=== PATIENT | male | born 1960 | race Caucasian/White ===

== ENCOUNTER 2016-09-23 16:45 | Emergency (ER) ==
[2016-09-23] MEDS ORDERED: NS 1,000 ML IV ONE (17:15)
--- NOTE | 2016-09-23 17:22 | PROVIDER DOCUMENTATION ---
HPI-Neurological Disorder - General Source: patient - History of Present Illness-Neuro Severity: reports: mild Onset/Duration: reports: just prior to arrival Context: reports: impaired speech Any recent trauma/injury?: reports: none Character of Deficits: reports: impaired speech New weakness or altered sensation location:: reports: none Cognitive Baseline: alert, oriented x3 Associated Symptoms: reports: sleepy Similar Symptoms Previously?: No Recently seen or treated by another doctor?: No <Kristie Ocampo - Last Filed: 09/23/16 18:01> <Niraj Tompkins - Last Filed: 09/23/16 19:43> <Daniel Carr - Last Filed: 09/23/16 19:45> - General Chief Complaint: Stroke-Like Symptoms Stated Complaint: right eye vision gone,slurred speech Time Seen by Provider: 09/23/16 17:05 Allergies/Adverse Reactions: Patient Allergies Allergy/AdvReac Type Severity Reaction Status Date / Time No Known Allergies Allergy Verified 06/30/16 14:43 Home Medications: Tizanidine [Zanaflex] 4 mg PO TID 11/26/14 Potassium Gluconate 595 mg PO DAILY 06/30/16 Propantheline Sallis 15 mg PO DAILY 06/30/16 Vitamin B Complex [B Complex] 1 each PO BID 06/30/16 - History of Present Illness-Neuro Nature of Presenting Problem: Pt is a 56 yom who came to the ED with a cc of stroke like symptoms. pt friend reports he cannot express his feelings. pt is a quadriplegic. (Kristie Ocampo) Review of Systems - Adult - REVIEW OF SYSTEMS - ADULT Constitutional: denies: chills, fatique Eyes: denies: blurred vision, double vision Ears, Nose, Mouth & Throat: reports: no symptoms reported Cardiovascular: denies: irregular heart rate, orthopnea Respiratory: reports: no symptoms reported Gastrointestinal: denies: diarrhea, nausea, vomiting Genitourinary: reports: no symptoms reported Musculoskeletal: reports: no symptoms reported Integumentary: reports: no symptoms reported Neurological: reports: slurred speech. denies: loss of balance, numbness, paresthesia, syncope Psychiatric: reports: no symptoms reported Endocrine: reports: no symptoms reported Hematologic/Lymphatic: reports: no symptoms reported Allergic/Immunologic: reports: no symptoms reported All Other Systems: Reviewed and Negative <Kristie Ocampo - Last Filed: 09/23/16 18:01> Past History - Adult - PAST MEDICAL HISTORY-ADULT Review of Records: reports: Old Records Reviewed, Nursing Assessment Review Major Childhood Illnesses: reports: denies history Cardiovascular: reports: denies history Respiratory: reports: denies history Gastrointestinal: reports: denies history Obstetrical/Gynecological: reports: denies history Genitourinary: reports: denies history Musculoskeletal: reports: denies history Neurological: reports: denies history Endocrine/Immune: reports: denies history Other Conditions: reports: denies history - IMMUNIZATION STATUS Childhood Immunizations: See Nurse Assessment Flu Vaccine: See Nurse Assessment - FAMILY HISTORY Family History: reviewed, not pertinent <Kristie Ocampo - Last Filed: 09/23/16 18:01> Physical Exam- Neurological - Physical Exam-Neuro General Appearance: appears well, alert, no apparent distress HENMT: normocephalic/atraumatic, normal ENT inspection, TMs normal, pharynx normal Head Injury: no evidence of injury Neck: non-tender, full range of motion, supple, normal inspection Respiratory: chest non-tender, lungs clear, normal breath sounds, no pleuratic chest pain, no respiratory distress, no accessory muscle use Cardiovascular: normal peripheral pulses, regular rate, rhythm, no edema, no gallop, no JVD, no murmur Abdominal Exam: normal bowel sounds, non tender, soft, no organomegaly, no pulsatile mass Lymphatic: no adenopathy 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 Exam: normal hearing, normal speech, PERRL Coordination/Gait: normal finger to nose, normal gait, negative Romberg's sign Motor/Sensory: no motor deficit, no sensory deficit, no pronator drift, negative Babinski's sign Neurologic: 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 Tompkins Time of Transfer: 17:51 <Kristie Ocampo - Last Filed: 09/23/16 18:01> <Niraj Tompkins - Last Filed: 09/23/16 19:43> - REASSESSMENT Reassessment #1 Time Reassessed: 18:38 Status: improving (Dr. Tompkins discussed results of X-ray with pt and pt's family. Pt reports feeling much better and family reports pt is back at his baseline. Pt 's speech was not slurred. Pt's B/P was 174/104 and HR was 48.) Reassessment #2 Time Reassessed: 18:49 Status: other (Dr. Tompkins told pt that admit will wait due to labs/orders still being processed) - EKG 1 Time of EKG reading by physician:: 16:53 EKG Read and Signed by:: Kat Beltran EKG Interpretation (*Must complete 3 of following elements*): Abnormal (Minimal voltage criteria for LVH, may be normal variant per Dr. Tompkins) Rate: 49 Rhythm: Sinus bradycardia - XRAY 1 XRAY: Bilateral XRAY Study: Chest Impression: See EMR Report XRAY Interpretation: NAD per Dr. Tompkins - CHANGE OF SHIFT REPORT (ED Provider) Report Given and Care Transferred to:: Dr. Tompkins Time of Transfer: 18:00 <Daniel Carr - Last Filed: 09/23/16 19:45> - PLAN OF CARE/RESULTS Progress/Plan/Lab Results: Vital Signs - 24 hr 09/23/16 17:03 Pulse Rate 58 L Respiratory 18 Rate Blood Pressure 206/112 Orders Category Date Time Status Cardiac Monitoring DIRECTED Care 09/23/16 17:16 Active Finger Stick Blood Sugar (ED) DIRECTED Care 09/23/16 17:16 Active Oxygen Therapy- ED Nursing DIRECTED Care 09/23/16 17:16 Active Saline Loc NOW Care 09/23/16 17:16 Active CHEST-PORTABLE [RAD] Stat Exams 09/23/16 17:17 Ordered HEAD W/O CONTRAST [CT] Stat Exams 09/23/16 16:58 Ordered ALCOHOL BLOOD Stat Lab 09/23/16 17:16 Uncollected CBC WITH ELECTRONIC DIFF [HEME] Stat Lab 09/23/16 17:16 Uncollected CK PROFILE [SP CHEM] Stat Lab 09/23/16 17:17 Uncollected COMPREHENSIVE METABOLIC PANEL [CHEM] Stat Lab 09/23/16 17:16 Uncollected LACTATE, PLASMA [CHEM] Stat Lab 09/23/16 17:16 Uncollected PROTIME WITH INR [COAG] Stat Lab 09/23/16 17:16 Uncollected PTT [COAG] Stat Lab 09/23/16 17:16 Uncollected TROPONIN T Stat Lab 09/23/16 17:16 Uncollected URINALYSIS W/POSS RFLX CULT [URINALYSIS] Stat Lab 09/23/16 17:15 Uncollected URINE DRUG SCREEN Stat Lab 09/23/16 17:16 Uncollected 0.9% Sodium Chloride Inj [Ns] 1,000 ml Med 09/23/16 17:15 Active IV 150 mls/hr Pulse Oximetry Stat Oth 09/23/16 17:16 Active EKG [EKG] Stat Ther 09/23/16 17:16 Ordered (Kristie Ocampo) Vital Signs - 24 hr 09/23/16 17:03 Pulse Rate 58 L Respiratory 18 Rate Blood Pressure 206/112 Orders Category Date Time Status Cardiac Monitoring DIRECTED Care 09/23/16 17:16 Active Finger Stick Blood Sugar (ED) DIRECTED Care 09/23/16 17:16 Active Oxygen Therapy- ED Nursing DIRECTED Care 09/23/16 17:16 Active Saline Loc NOW Care 09/23/16 17:16 Active CHEST-1 VIEW [RAD] Stat Exams 09/23/16 17:17 Taken HEAD W/O CONTRAST [CT] Stat Exams 09/23/16 16:58 Draft ALCOHOL BLOOD Stat Lab 09/23/16 18:27 Received CBC WITH ELECTRONIC DIFF [HEME] Stat Lab 09/23/16 18:27 Results CK PROFILE [SP CHEM] Stat Lab 09/23/16 18:27 Received COMPREHENSIVE METABOLIC PANEL [CHEM] Stat Lab 09/23/16 18:27 Received LACTATE, PLASMA [CHEM] Stat Lab 09/23/16 18:27 Received PROTIME WITH INR [COAG] Stat Lab 09/23/16 18:27 Received PTT [COAG] Stat Lab 09/23/16 18:27 Received TROPONIN T Stat Lab 09/23/16 18:27 Received URINALYSIS W/POSS RFLX CULT [URINALYSIS] Stat Lab 09/23/16 18:35 Ordered URINE DRUG SCREEN Stat Lab 09/23/16 18:35 Ordered 0.9% Sodium Chloride Inj [Ns] 1,000 ml Med 09/23/16 17:15 Active IV 150 mls/hr Aspirin Med 09/23/16 18:37 Discontinued 81 mg PO NOW ONE Pulse Oximetry Stat Oth 09/23/16 17:16 Active EKG [EKG] Stat Ther 09/23/16 17:16 Ordered (Danile Carr) Departure <Kristie Ocampo - Last Filed: 09/23/16 18:01> - Departure Certified Medical Emergency: Emergent <Niraj Tompkins - Last Filed: 09/23/16 19:43> - Departure Time of Disposition Order: 19:45 Certified Medical Emergency: Emergent <Daniel Carr - Last Filed: 09/23/16 19:45> - Departure DIAGNOSIS: Uncontrolled hypertension, Chronic hyponatremia TIA (transient ischemic attack) Qualifiers: Transient cerebral ischemia type: other Qualified Code(s): G45.8 - Other transient cerebral ischemic attacks and related syndromes Disposition: HOME 01 Condition: Stable Additional Instructions: Follow up with Neurologist, Dr. Norton and your PCP on Monday. increase sodium intake, recheck sodium level next week ED Follow Up Instructions: You have been treated by a care provider in the Emergency Department. These instructions are being provided to you so you can have an understanding of how to care for yourself upon discharge. Upon discharge from the Emergency Department, you are responsible for making arrangements for follow-up care by a physician of your choice. Take all prescribed medications as directed. Return to the Emergency Department immediately for any new or worsening symptoms. You may call the Physician Referral phone number at [phone] to obtain a list of Physicians who are taking new patients. Referrals: Harry Marcus MD [Primary Care Provider] - Instructions: Transient Ischemic Attack, [id number] Attestation - Scribe Verification/Attestation Scribe:: Kristie Ocampo Acting as Scribe for:: Kat Beltran Scribe documention review:: This chart was documented by a scribe and accurately reflects the service the provider performed and the decisions made by the provider. <Kristie Ocampo - Last Filed: 09/23/16 18:01> - Scribe Verification/Attestation Scribe:: Daniel Carr Acting as Scribe for:: Niraj Tompkins Scribe documention review:: This chart was documented by a scribe and accurately reflects the service the provider performed and the decisions made by the provider. - Scribe Verification/Attestation #2 Shift Change Time: 18:00 Scribe Name: Daniel Carr Acting as Scribe for:: Niraj Tompkins <Daniel Carr - Last Filed: 09/23/16 19:45> Physician Attestation
--- NOTE | 2016-09-23 18:01 | Diag Imaging Result Document ---
PROCEDURE NAME: HEAD W/O CONTRAST - 09/23/2016 CT HEAD WITHOUT CONTRAST: COMPARISON: None available. FINDINGS: There is no discrete intracranial mass, mass effect, or intracranial hemorrhage. There is no evidence of acute infarct given the limited sensitivity of CT versus MRI. A cavum septum pellucidum is noted incidentally, a normal variant. There is no evidence of hydrocephalus. Surrounding soft tissues and bony structures are grossly unremarkable. IMPRESSION: No definite acute intracranial pathology by CT.
[2016-09-23 18:37] LABS: MANUAL DIFF NEEDED? NO
[2016-09-23] MEDS ORDERED: ASPIRIN PO ONE (18:37)
[2016-09-23 18:56] LABS: BASO% 0.4 % (0.0-0.8); EOS# 0.11 X1000 (0.0-0.7); EOS% 2.3 % (0.0-10.0); HEMATOCRIT 35.3 % (42.0-52.0); HEMOGLOBIN 12.1 g/dL (14.0-18.0); LYMPH# 1.33 X1000 (1.2-3.4); LYMPH% 28.2 % (20.5-51.1); MCH 30.9 PG (27-31); MCHC 34.3 g/dL (33-37); MCV 90.1 FL (81-99); MONO# 0.34 X1000 (0.11-0.59); MONO% 7.2 % (1.7-9.3); MPV 10.2 FL (7.4-10.4); NEUT% 61.9 % (42.2-75.2); PLT 169 X1000 (130-400); RBC 3.92 XMIL (4.7-6.1)
[2016-09-23 19:05] LABS: INR 1.02; PROTIME 10.8 Seconds (9.2-11.7); PTT 33.2 Seconds (22.0-36.0)
[2016-09-23 19:23] LABS: AGAP 13; ALBUMIN 3.8 g/dL (3.5-5.0); ALKALINE PHOSPHATASE 114 U/L (32-122); BUN 14 mg/dL (8-22); CALCIUM 8.8 mg/dL (8.8-10.2); CHLORIDE 90 mmol/L (98-107); COSMO 257; GOT 110 U/L (10-34); GPT 91 U/L (10-44); SODIUM 128 mmol/L (136-145); TCO2 25 mmol/L (25-35); TOTAL BILIRUBIN 0.55 mg/dL (0.20-1.00); TOTAL PROTEIN 6.8 g/dL (6.3-8.3)
[2016-09-23 20:05] LABS: CK INDEX 4.8 (0.0-2.5); CK-MB 10.46 ng/mL (0.0-5.0)
[2016-09-23 20:25] VITALS: BP 172/102
--- NOTE | 2016-09-23 21:28 | Diag Imaging Result Document ---
PROCEDURE NAME: CHEST-1 VIEW - 09/23/2016 AP RADIOGRAPH OF THE CHEST: COMPARISON: 07/31/2015. FINDINGS: There is a right basilar opacity indicating atelectasis and/or infiltrate. There is no definite pleural fluid collection. Cardiac silhouette and central vasculature are grossly unremarkable. IMPRESSION: Suggestion of right basilar atelectasis and/or infiltrate.
--- NOTE | 2016-09-26 06:38 | EKG Report ---
Test Performed on : 09/23/2016 4:53:37 PM Test Reason : STROKE SX Blood Pressure : / mmHG Vent. Rate : 049 BPM Atrial Rate : 049 BPM P-R Int : 148 ms QRS Dur : 080 ms QT Int : 484 ms P-R-T Axes : 052 051 089 degrees QTc Int : 437 ms Sinus bradycardia. Minimal voltage criteria for LVH, may be normal variant Borderline ECG When compared with ECG of 15-DEC-2009 10:57, Vent. rate has decreased BY [address] elevation has replaced ST depression in Inferior leads ST elevation has replaced ST depression in Lateral leads T wave inversion now evident in Lateral leads Unconfirmed Result
== END 2016-09-23 20:23 | disposition home or self-care (01) ==
LOC: ED 16:45
DX: G45.8 Other transient cerebral ischemic attacks and related syndromes (principal); E87.1 Hypo-osmolality and hyponatremia; I10 Essential (primary) hypertension; R94.31 Abnormal electrocardiogram [ECG] [EKG]; R47.81 Slurred speech; H54.7 Unspecified visual loss; G82.50 Quadriplegia, unspecified; Z79.899 Other long term (current) drug therapy
CPT/HCPCS: 70450; 71010; 80053; 82550; 82553; 82948; 83605; 84484; 85025; 85610; 85730; 93005; G0480

== ENCOUNTER 2019-10-21 11:49 | Inpatient (IN) ==
[2019-10-21] MEDS ORDERED: NS 500 ML IV ONE (12:04)
--- NOTE | 2019-10-21 12:14 | EKG Report ---
Test Performed on : 10/21/2019 12:08:45 PM Test Reason : CP Blood Pressure : / mmHG Vent. Rate : 073 BPM Atrial Rate : 073 BPM P-R Int : 164 ms QRS Dur : 076 ms QT Int : 388 ms P-R-T Axes : 056 051 082 degrees QTc Int : 427 ms Normal sinus rhythm. Possible Left atrial enlargement Left ventricular hypertrophy with repolarization abnormality Abnormal ECG When compared with ECG of 23-SEP-2016 16:53, Vent. rate has increased BY 24 BPM Unconfirmed Result
[2019-10-21 12:34] LABS: BASO# 0.01 X1000 (0.0-0.2); BASO% 0.1 % (0.0-0.8); EOS# 0.14 X1000 (0.0-0.7); HEMATOCRIT 31.1 % (42.0-52.0); HEMOGLOBIN 10.2 g/dL (14.0-18.0); IMM GRAN# 0.03 X1000 (0.0-0.04); IMM GRAN% 0.4 % (0.0-0.5); LYMPH# 1.51 X1000 (1.2-3.4); LYMPH% 21.1 % (20.5-51.1); MCH 30.7 PG (27-31); MCHC 32.8 g/dL (33-37); MCV 93.7 FL (81-99); MONO# 0.73 X1000 (0.11-0.59); MONO% 10.2 % (1.7-9.3); MPV 9.9 FL (7.4-10.4); NEUT# 4.75 X1000 (1.4-6.5); NEUT% 66.2 % (42.2-75.2); PLT 114 X1000 (130-400); RBC 3.32 XMIL (4.7-6.1); WBC 7.17 X1000 (4.8-10.8)
[2019-10-21 12:53] LABS: ALB/GLOB RATIO 1.6; ALBUMIN 3.7 g/dL (3.5-5.0); CALCIUM 9.1 mg/dL (8.8-10.2); CREATININE 1.6 mg/dL (0.7-1.2); POTASSIUM 3.6 mmol/L (3.5-5.1); TOTAL BILIRUBIN 0.48 mg/dL (0.20-1.00)
[2019-10-21] MEDS ORDERED: NS + KCL 20 MEQ 1,000 ML IV ONE ×2 (13:10→20:58)
[2019-10-21 13:18] LABS: ANISOCYTOSIS 1+; BASO 1 % (0-1); EOS 2 % (1-10); LYMPHS 23 % (21-51); MONO 11 % (1-9); NRBC 1 % (0-0); SEGS 63 % (42-75)
[2019-10-21 13:19] LABS: HOWELL-JOLLY BODIES OCCASIONAL
[2019-10-21 13:27] LABS: FREE T4 1.21 ng/dL (0.93-1.70); TSH 0.97 uIUmL (0.27-4.20)
[2019-10-21 13:29] LABS: CK INDEX 1.2 (0.0-2.5); CK-MB 2.57 ng/mL (0.0-5.0)
[2019-10-21] MEDS: ASPIRIN PO SCH (14:20)
[2019-10-21] MEDS ORDERED: ZOFRAN IV PRN (14:20)
[2019-10-21] MEDS ORDERED: TYLENOL PO PRN (14:20)
--- NOTE | 2019-10-21 17:33 | ECHO REPORT ---
ORDER DATE: 10/21/2019 INTERPRETING PHYSICIAN: Huan Harris MD INDICATION: Chest pain. Elevated troponin. Hypotension. M-MODE MEASUREMENTS: Left ventricle end diastole: 4.2 cm. Left ventricle end systole: 2.4 cm. Posterior wall: 1.1 cm. Interventricular septum: 1.2 cm. Left atrium: 3.5 cm. Aortic diameter: 3.5 cm. SUMMARY OF 2-DIMENSIONAL IMAGIN. The left ventricular function is normal. Ejection fraction is estimated at 62%. No wall motion abnormality is noted. Borderline concentric LVH. The right ventricle is normal. 2. The aortic valve looks normal. Color flow mapping unremarkable. 3. The mitral valve looks normal. Color flow mapping unremarkable. 4. Pulse wave Doppler of mitral inflow is normal. 5. Tissue Doppler of septal and lateral mitral annulus averages 10 cm. There is no diastolic dysfunction. 6. The tricuspid valve is unremarkable. 7. The pulmonary pressure is estimated at 25 mmHg. 8. The pulmonic valve is normal. 9. There is no pericardial effusion, no mass, and no thrombus. cc: MD Harry Ledesma MD
--- NOTE | 2019-10-21 17:44 | Diag Imaging Result Doc PS360 ---
EXAM: CT ABDOMEN/PELVIS W/O CONTRAST 10/21/2019 HISTORY: elevated lfts/gross hematuria TECHNIQUE: This exam was performed using automated exposure control, adjustment of mA or kV according to patient size, and/or use of iterative reconstruction technique. COMMENT: There is ill-defined groundglass opacity in both lower lobes particularly the right lower lobe as well as the right middle lobe. There are some atelectatic or fibrotic appearance disease in the lung bases which were not present on 07/20/2015. There is a hiatal hernia. There has been cholecystectomy. There is marked renal atrophy on the left. There is fullness of both collecting systems particularly the right collecting system. There are two stones in the left collecting system the largest of which measures over 7 mm. There are no apparent stones on the right. There is hydroureter on the right. The bladder is grossly trabeculated. There has apparently been previous transurethral resection of the prostate. There are multiple bladder stones. These range in size from 2 to 4 mm. One of these may have been passed recently on the right. There is no evidence of appendicitis or bowel obstruction. Compared to the previous study the liver is stable in appearance. IMPRESSION: Right hydronephrosis. Left renal atrophy and nephrolithiasis. Bladder trabeculation and multiple bladder stones. Pneumonia versus pulmonary edema. Subsegmental atelectasis. Electronically signed by Price Galicia 10/21/2019 5:42 PM
[2019-10-21] MEDS ORDERED: NS 500 ML ONE (17:47)
[2019-10-21 17:58] LABS: CK INDEX 1.4 (0.0-2.5); CK-MB 3.3 ng/mL (0.0-5.0)
[2019-10-21 18:03] LABS: URINE SOURCE CATH
[2019-10-21 18:09] LABS: BILIRUBIN URINE NEGATIVE (NEGATIVE); BLOOD URINE TRACE (NEGATIVE); COLOR YELLOW; GLUCOSE URINE NEGATIVE (NEGATIVE); KETONE URINE NEGATIVE (NEGATIVE); LEUKOCYTES URINE LARGE (NEGATIVE); NITRITE URINE POSITIVE (NEGATIVE); PROTEIN URINE TRACE mg/dL (NEGATIVE); SP GRAVITY URINE 1.008; TURBIDITY URINE HAZY (CLEAR); UROBILINOGEN URINE NORMAL (NORMAL)
[2019-10-21 18:10] LABS: UR EPITHELIAL CELLS <10 /HPF (<10); URINE BACTERIA 1+ /HPF; URINE RBC <10 /HPF (<10); URINE WBC TNTC /HPF (<10)
[2019-10-21] MEDS: FLORINEF PO SCH (18:17)
[2019-10-21] MEDS: CRESTOR PO SCH (22:09)
[2019-10-21] MEDS: VICON-C PO SCH (22:10)
[2019-10-21] MEDS: ZANAFLEX PO SCH (22:10)
[2019-10-21] MEDS: ROCEPHIN 1 GM in NS 50 ML IV SCH (22:11)
[2019-10-21] MEDS: PEPCID PO SCH (22:11)
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
[2019-10-22] MEDS ORDERED: DULCOLAX ONE (00:15)
[2019-10-22] MEDS: DULCOLAX PR SCH ×2 (00:30→21:00)
[2019-10-22 01:04] LABS: CK INDEX 1.4 (0.0-2.5); CK-MB 4.13 ng/mL (0.0-5.0)
[2019-10-22 05:24] LABS: BASO# 0.02 X1000 (0.0-0.2); BASO% 0.3 % (0.0-0.8); EOS# 0.16 X1000 (0.0-0.7); EOS% 2.3 % (0.0-10.0); HEMATOCRIT 30.1 % (42.0-52.0); HEMOGLOBIN 9.7 g/dL (14.0-18.0); IMM GRAN# 0.03 X1000 (0.0-0.04); IMM GRAN% 0.4 % (0.0-0.5); LYMPH% 26.2 % (20.5-51.1); MCH 30.6 PG (27-31); MCHC 32.2 g/dL (33-37); MONO# 0.75 X1000 (0.11-0.59); MONO% 10.9 % (1.7-9.3); MPV 9.7 FL (7.4-10.4); NEUT% 59.9 % (42.2-75.2); PLT 103 X1000 (130-400); RBC 3.17 XMIL (4.7-6.1); RDW 14.2 % (11.5-14.5); WBC 6.86 X1000 (4.8-10.8)
[2019-10-22 05:33] LABS: AGAP 12; BUN 21 mg/dL (8-22); CALCIUM 9.1 mg/dL (8.8-10.2); CHLORIDE 101 mmol/L (98-107); COSMO 272; CREATININE 1.2 mg/dL (0.7-1.2); ESTIMATED GFR > 60; GLUCOSE 77 mg/dL (70-104); POTASSIUM 3.8 mmol/L (3.5-5.1); SODIUM 135 mmol/L (136-145); TCO2 22 mmol/L (25-35)
[2019-10-22 06:47] LABS: CK INDEX 1.6 (0.0-2.5); CK-MB 4.67 ng/mL (0.0-5.0)
[2019-10-22] MEDS: VICON-C PO SCH ×2 (08:14→21:20)
[2019-10-22] MEDS: PRILOSEC PO SCH (08:15)
[2019-10-22] MEDS: ZANAFLEX PO SCH ×3 (08:15→21:20)
[2019-10-22] MEDS: FLORINEF PO SCH (08:15)
[2019-10-22] MEDS: ASPIRIN PO SCH (08:15)
[2019-10-22] MEDS: PEPCID PO SCH ×2 (08:16→21:20)
--- NOTE | 2019-10-22 13:44 | Diag Imaging Result Doc PS360 ---
CT THORAX W/O CONTRAST - 10/22/2019 INDICATION: Dyspnea, rule out pneumonia, atelectasis, edema COMPARISON: Abdomen pelvis CT to 12/06/2019 FINDINGS: There is no adenopathy. Heart and great vessels are normal. Airways are clear. There are some hazy multifocal infiltrates in the right middle and lower lobes. There is also some multifocal coarse linear atelectasis in both lung bases. No pneumothorax or pleural effusion. Bones are intact and well mineralized. IMPRESSION: 1. Hazy infiltrates compatible with bronchopneumonia in the right lung base. Another possibility would be evolving pulmonary edema if applicable. 2. Extensive linear atelectasis in both lung bases. This exam was performed using automated exposure control, adjustment of mA or kV according to patient size, and/or use of iterative reconstruction technique Electronically signed by Antonio Araujo 10/22/2019 1:41 PM
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
--- NOTE | 2019-10-22 14:27 | CARDIOLOGY CONSULTATION ---
DATE: 10/22/2019 CONSULTATION REQUESTED BY: Dr. Marcus. INDICATION: Labile blood pressure, abnormal cardiac enzymes. HISTORY: Mr. Regan is a 59-year-old male who presented to the hospital for evaluation because he has noted that his blood pressure has been running lower than usual and he does not feel well when that happens. Upon presentation to the hospital they did check his cardiac enzymes and they turned out to be abnormally elevated with a troponin of 103 ng/L and then has subsequently decreased to 65 ng/L. The patient denies having any chest pain. In fact, he does not have any sensation of any kind below the level of T5 approximately. 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 He has some motion of his left arm. He gets around on a motorized electric wheelchair. The patient has no prior history of heart disease. PAST HISTORY: Positive for mild degree of chronic kidney insufficiency with kidney stones and hydronephrosis. He has had issues with low blood pressure before and whenever he gets urinary tract infection his blood pressure becomes more labile. PAST SURGICAL HISTORY: He had a prior injury to the spinal cord years ago. He had to undergo C4- 5/C6 fusion in the past. He has had bilateral inguinal hernia repair, hemorrhoidectomy, sphincterotomy, cholecystectomy and 5th toe amputation of the left side. SOCIAL HISTORY: He is . He has no children. Lives with his mother. 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 He is not a smoker. FAMILY HISTORY: Father is one [facility]. Has hypertension, aortic stenosis. ALLERGIES: Negative. HOME MEDICATIONS: Listed at the time of admission included ciprofloxacin 500 mg twice a day, famotidine 20 twice a day, Florinef 0.1 mg daily, potassium gluconate 595 daily, propantheline bromide 50 mg daily and rosuvastatin 10 mg daily. He also takes vitamin B complex. REVIEW OF SYSTEMS: Basically he is extremely limited due to the quadriparesis/ nearly quadriplegic. He is able to care for himself. However, his mother helps him some. He usually eats at home. Mother cooks. No other major issues. No previous history of heart disease. PHYSICAL EXAM: Today blood pressure is 122/76, pulse 49, temperature 98.5 degrees, respirations 12. Awake, alert, oriented, in no distress.HEENT: Unremarkable. Chest: Sounds diminished at the bases. Heart: Sounds are regular, rhythmic. I do not hear any gallop or murmur. Abdomen: Soft. Bowel sounds diminished. Extremities: Showed significant muscle atrophy, decreased pulses. No edema. Neuro: Basically he is quadriplegic with paralysis of the right upper and both lower extremities and the trunk. He has no painful sensation below the T5 area in the chest. BLOOD WORK: White cell count 6860, hemoglobin 9.7, hematocrit 30.1%. Sodium 135, potassium 3.8, BUN 21, creatinine 1.2, CPK is 290, index 1.6%. C-reactive protein is 12.03 mg/L. ProBNP is 126 pg/mL being upper normal 177. Urinalysis is abnormal with too numerous to count WBCs. Abdomen CT showed right hydronephrosis with left renal atrophy, nephrolithiasis, bilateral kidney stones and multiple bladder stones with pneumonia versus pulmonary edema. IMPRESSION: 1. Patient who presents with labile blood pressure with hypotension. This is mostly secondary to prior transection of the spinal cord at the cervical level with vasomotor instability. 2. Recurrent urinary tract infection. 3. Chronic anemia. 4. Chronic kidney disease, hydronephrosis and bladder as well as kidney stones. RECOMMENDATION: At this time, I would suggest to do a CT scan of the thorax without contrast to see if he has any significant degree of coronary calcification. If that is the case then it might be prudent to do a Lexiscan MPI study to make sure that he does not have any critical stenosis. Given the fact that he has been bedbound for so many years since his spinal cord injury which dates back to 1982, he may be a super high risk for premature atherosclerosis. We will see what the CT shows and then we will give further advice. At this time, the patient seems to be clinically stable. I would continue to treat the infection, give him fluids gingerly and observe. We will be glad to provide some advice down the road. cc: MD Harry Ledesma MD [facility]
[2019-10-22 16:39] LABS: UR CREAT RANDOM 43.9 mg/dL (14-26); UR PROT RANDOM 43.3 mg/dL
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
[2019-10-22] MEDS: ROCEPHIN 1 GM in NS 50 ML IV SCH (21:05)
[2019-10-22] MEDS: CRESTOR PO SCH (21:20)
[2019-10-23 07:15] LABS: AGAP 13; ALBUMIN 3.5 g/dL (3.5-5.0); BUN 16 mg/dL (8-22); CHLORIDE 102 mmol/L (98-107); COSMO 271; ESTIMATED GFR > 60; GLUCOSE 60 mg/dL (70-104); PHOSPHORUS 2.9 mg/dL (2.7-4.5); POTASSIUM 4.6 mmol/L (3.5-5.1); SODIUM 136 mmol/L (136-145); TCO2 21 mmol/L (25-35)
--- NOTE | 2019-10-23 07:27 | EKG Report ---
Test Performed on : 10/23/2019 06:43:19 AM Test Reason : bradycardia Blood Pressure : / mmHG Vent. Rate : 105 BPM Atrial Rate : 105 BPM P-R Int : 170 ms QRS Dur : 076 ms QT Int : 318 ms P-R-T Axes : 062 049 059 degrees QTc Int : 420 ms Sinus tachycardia. Possible Left atrial enlargement Left ventricular hypertrophy Abnormal ECG When compared with ECG of 21-OCT-2019 12:08, (Unconfirmed) No significant change was found Confirmed by Ava Juárez MD ([id number]) on 10/23/2019 12:16:04 PM
[2019-10-23] MEDS ORDERED: LEXISCAN ONE (08:44)
--- NOTE | 2019-10-23 08:54 | NEPHROLOGY PROGRESS NOTE ---
DATE: 10/23/2019 TIME SEEN: 0700. SUBJECTIVE: Mr. Regan is resting quietly in bed. He states that he does have some occasional jerking motion secondary to his paraplegia. States that he has no chest pain or increased work of breathing today. OBJECTIVE: Vital Signs: Temperature 97.8 degrees, blood pressure 126/93, heart rate 93, respirations 15, he is on 2 L nasal cannula. Last recorded saturation 100%. The patient has 0 recorded in though he had 2 L documented transfuse from his emergency room stay in the last 48 hours. Continues on D5 half-normal with 20 of K at 40 mL an hour. He has had 1700 out to void per Kathleen catheter. LABORATORY DATA: Sodium 136, potassium 4.6, chloride 102, CO2 21, BUN 16, creatinine 1, glucose is 60. His anion gap is 13, calcium 9, phosphorus 2.9, albumin 3.5. Previous hemoglobin 9.7. His blood cultures are negative. Urine electrolytes indicated a low FENa score. This is post resuscitation for IV fluids. PHYSICAL EXAMINATION: General: This is a 59-year-old white male. He is currently resting quietly in bed. Skin: Warm and dry. HEENT: Normocephalic, atraumatic. Conjunctivae is pale. He has PERRL. Mucous membranes are moist. Neck: Stiff. Trachea is midline. No evidence of JVD in the flat position. Cardiovascular: Regular rate and rhythm. He appears sinus bradycardia on the monitor. Heart rate remains in the 60 range. Lungs: Clear to auscultation bilaterally. Equal excursion on room air. Abdomen: Soft, nontender, positive bowel sounds. Genitourinary: Kathleen catheter is in place. Adult pad remains in place. Integumentary: Excoriation remains with abrasions to the right proximal forearm, swelling to the right upper hand. Extremities: Continues with contractures to the musculature of his lower extremities. He also has fine contractures of his upper extremities. Neurological: Patient is awake and alert x3. He is having some fine tremors that he says is chronic. ASSESSMENT: 1. Renal insufficiency. Patient has returned to his historical baseline, BUN of 16 with a creatinine of 1. Adequate urine output has been documented. 2. Urinary tract infection. Patient remains on Rocephin. 3. Right hydronephrosis. This is now being followed by Dr. Diaz. PLAN: We will sign off and remain available if needed during his hospital stay. I would like to thank you for allowing us to follow with this patient. Dictated by RAVI Keith for Sam Moy MD Face to face encounter, data reviewed, discussed with Comfort Tadeo on 10/23/19. I agree with the above assessment and plan of care. cc: RVAI Keith MD Stephen W. Harbin, MD [facility]
[2019-10-23] MEDS: PEPCID PO SCH ×2 (12:03→21:22)
[2019-10-23] MEDS: ZANAFLEX PO SCH ×3 (12:03→21:21)
[2019-10-23] MEDS: ASPIRIN PO SCH (12:03)
[2019-10-23] MEDS: VICON-C PO SCH ×2 (12:03→21:21)
[2019-10-23] MEDS: FLORINEF PO SCH (12:03)
[2019-10-23] MEDS: PRILOSEC PO SCH (12:08)
--- NOTE | 2019-10-23 12:53 | Diag Imaging Result Document ---
PROCEDURE NAME: MYOCARDIAL PERF SCAN, STR/REST - 10/23/2019 PROCEDURE: Lexiscan Cardiolite stress test. SUMMARY: Lexiscan was infused per standard protocol. There was no chest pain. Stress electrocardiogram was negative for ischemia. Following Lexiscan infusion, Cardiolite was injected; 12.6 mCi of Cardiolite was injected for the rest phase, 36.8 mCi of Cardiolite was injected for the stress phase. Images were obtained in standard views. Images revealed significant chest wall and diaphragmatic attenuation. Normal left ventricular cavity size. There is a low-grade, moderate-size fixed defect in the inferior wall and in the inferolateral wall. However, there is a localized small area of reversibility in the inferoapical portion. Left ventricular ejection fraction by gated SPECT was 67%. Wall motion was normal. CONCLUSIONS: 1. No chest pain. 2. Negative Lexiscan stress electrocardiogram. 3. Myocardial perfusion images revealed a low-grade, moderate-sized, fixed defect in the inferior wall and in the inferolateral wall, with small area of omkar-infarct ischemia in the inferoapical wall. There is significant chest wall attenuation. Would recommend clinical correlation. 4. Left ventricular ejection fraction by gated SPECT was 67%. cc: MD Huan Pantoja MD
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
[2019-10-23] MEDS: CRESTOR PO SCH (21:20)
[2019-10-23] MEDS: ROCEPHIN 1 GM in NS 50 ML IV SCH (21:21)
[2019-10-23] MEDS: DULCOLAX PR SCH (21:23)
[2019-10-24 06:30] LABS: AGAP 13; ALBUMIN 3.6 g/dL (3.5-5.0); BUN 16 mg/dL (8-22); CHLORIDE 101 mmol/L (98-107); COSMO 273; CREATININE 1.2 mg/dL (0.7-1.2); ESTIMATED GFR > 60; GLUCOSE 66 mg/dL (70-104); PHOSPHORUS 2.6 mg/dL (2.7-4.5); POTASSIUM 4.1 mmol/L (3.5-5.1); SODIUM 137 mmol/L (136-145); TCO2 23 mmol/L (25-35)
--- NOTE | 2019-10-24 08:40 | PROGRESS NOTE ---
DATE: 10/24/2019 SUBJECTIVE: No acute events overnight. The patient did have attempted placement of indwelling catheter yesterday which met resistance. Ultimately, had a Condom catheter replaced and had good urinary output overnight. He denies any fevers or chills. Urine culture showing Pseudomonas. We will transition with antibiotics today to Zosyn. The patient was made n.p.o. in preparation for procedure today. We will plan to perform cystoscopy and bilateral retrograde pyelogram and excision of lesion from the penis later today. OBJECTIVE: Vital signs: Temperature 98.6, heart rate 87, blood pressure 174/78, oxygen saturation 97% on room. General: No acute distress. Resting comfortably in bed. Alert and oriented x3. Respiratory: Good respiratory effort without audible wheezing or rales. Abdomen: Soft, nontender. : A Condom catheter in place with a lesion from the penis itself that appears to be a skin tag ventral to the urethral meatus. LABORATORY: Sodium 137, potassium 4.1, chloride 101, bicarbonate 23. BUN 16, creatinine 1.2, glucose 66, phosphorus 2.6, albumin 2.6. ASSESSMENT AND PLAN PLAN: Mr. Regan is a 59-year-old who presented in consultation regarding right hydronephrosis and neurogenic bladder. The patient had significant bladder abnormalities, multiple diverticulum on CT scan, as well as hydronephrosis of the right kidney and atrophic left kidney. I think it is likely related to long-standing obstruction. I talked with him. I recommended cystoscopy and bilateral retrograde pyelogram and consideration for indwelling catheter. We will plan to excise the lesion from his ventral surface of the penis as well. We will plan to do that later today. We will transition his antibiotics. The patient currently is only sensitive to intravenous antibiotics for Pseudomonas. I think this is likely a real infection; however, he has got bilateral renal stones, which could be harboring infection, as well as in the bladder and hydronephrosis. We will consider placement of right ureteral stent if not draining on retrograde pyelograms today. We will continue to monitoring from a urologic standpoint. Please call for any questions or concerns. cc: MD Harry Hutchins MD MTDD
[2019-10-24] MEDS: ZOSYN 3.375 GM in NS 50 ML IV SCH ×2 (10:50→17:46)
[2019-10-24] MEDS ORDERED: DIPRIVAN 1% ONE ×2 (11:46→12:23)
[2019-10-24] MEDS ORDERED: XYLOCAINE-MPF 2% ONE (11:46)
[2019-10-24] MEDS ORDERED: NITROGLYCERIN 50 MG/D5W 0 MG/0 ML IV.SOLN ONE (11:50)
--- NOTE | 2019-10-24 12:21 | CARDIOLOGY PROGRESS NOTE ---
DATE: 10/24/2019 CHIEF COMPLAINT: Labile blood pressure. SUBJECTIVE: Mr. Regan is feeling just basically back to his normal self. He is not having any chest symptoms. OBJECTIVE: Vital signs: Blood pressure 174/78, temperature 98.6, pulse 87, and respirations 16. General: Awake, alert, and in no distress. HEENT: Unremarkable. Chest: Symmetrical breath sounds. No rales. Cardiac: Heart sounds are regular and rhythmic. No gallop or murmur. Gastrointestinal: His abdomen is nontender. Extremities: The extremities show no edema. Neurological: Basically the same findings as initially with quadriplegia/quadriparesis. DIAGNOSTIC DATA: Blood work includes a proBNP level that was 826, being normal up to 177 pg/mL. Blood work included a cholesterol of 148, LDL of 54, and HDL of 80. BUN today is 16, creatinine 1.2, sodium 137, and potassium 4.1. Myocardial perfusion stress test was done yesterday and that shows more than likely attenuation of the inferior wall, possibly a ramp artifact. No convincing evidence of inducible ischemia. Ejection fraction is normal. IMPRESSION: 1. Patient who presents with labile hypotension/hypertension. He has a history of a long-term spinal cord injury since 1985 with a highly variable/labile blood pressure over the course of many years. 2. Urinary tract infection. He is growing pseudomonas which is resistant to levofloxacin and sensitive to ceftazidime and Cefepime. 3. Abnormal CT scan of the chest that showed coronary atherosclerosis, especially the LAD, with some question of infiltrates in the right middle and lower lobe that could represent atelectasis plus some pulmonary congestion or fluid overload versus pneumonia. Clinically the patient does not have a significant inflammatory response. More than likely this represents just dependent atelectasis and some mild degree of fluid overload. RECOMMENDATIONS: At this time I really do not have any bright suggestions. The patient has been dealing with this problem for the past 35 years. I do not believe that there is any specific cardiac decompensation that needs to be further investigated, for example by means of a heart catheterization, because the likelihood of finding correctable pathology like CAD in need of stent that would result in any positive impact in stabilization of his blood pressure is rather low and the risk of harming him is rather high. Perhaps controlling his pseudomonas urinary tract infection will help to stabilize his blood pressure. I will leave it up to Dr. Marcus to continue to try small amounts of Florinef and judicial use of diuretics as needed to balance his fluid status. At this time I am going to sign off. Please call me if you have any further questions or concerns. cc: MD Harry Ledesma MD MTDD
[2019-10-24] MEDS ORDERED: LABETALOL (DOSE) ONE (12:24)
[2019-10-24] MEDS: ZANAFLEX PO SCH ×3 (14:00→21:40)
[2019-10-24] MEDS: PEPCID PO SCH ×2 (14:01→21:40)
[2019-10-24] MEDS: VICON-C PO SCH ×2 (14:01→21:40)
[2019-10-24] MEDS: PRILOSEC PO SCH (14:01)
[2019-10-24] MEDS: FLORINEF PO SCH (14:02)
--- NOTE | 2019-10-24 14:08 | Diag Imaging Result Doc PS360 ---
RETROGRADES 2 OR 3 FILMS - 10/24/2019 INDICATION: BILATERAL RETROGRADES, RIGHT STENT, RIGHT HYDONEPHROSIS TECHNIQUE: Bilateral ureterograms. The exam was performed by the patient's urologist. Total fluoroscopy time was 20 seconds. 16 images were obtained. COMPARISON: CT abdomen pelvis 10/21/2019 FINDINGS: The left side appeared normal. There is moderate right hydroureteronephrosis. A right nephroureteral stent was placed in good position. IMPRESSION: No complication. Electronically signed by Antonio Araujo 10/24/2019 2:05 PM
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
[2019-10-24 18:54] LABS: INR 1.12; PROTIME 14.6 Seconds (11.0-16.0)
[2019-10-24] MEDS: DULCOLAX PR SCH (21:39)
[2019-10-24] MEDS: CRESTOR PO SCH (21:40)
[2019-10-25] MEDS: ZOSYN 3.375 GM in NS 50 ML IV SCH ×3 (00:10→11:08)
[2019-10-25] MEDS: PRILOSEC PO SCH ×2 (05:23→06:01)
[2019-10-25 07:01] LABS: ALBUMIN 3.5 g/dL (3.5-5.0); CALCIUM 8.5 mg/dL (8.8-10.2); CREATININE 1.3 mg/dL (0.7-1.2); PHOSPHORUS 2.3 mg/dL (2.7-4.5); POTASSIUM 3.7 mmol/L (3.5-5.1)
[2019-10-25] MEDS ORDERED: NS 250 ML ONE (08:08)
--- NOTE | 2019-10-25 09:31 | PROGRESS NOTE ---
DATE: 10/25/2019 SUBJECTIVE: Postoperative day 1 from cystoscopy, bilateral retrograde pyelograms and right ureteral stent placement and excision of penile lesion. The patient did relatively well overnight. He did have some hypotension yesterday postoperatively, likely related to doses of antihypertensives in the operating room. Denies any fevers or chills. His catheter has been draining with over 2300cc recorded yesterday. He has been tolerating p.o. intake. PHYSICAL EXAMINATION: Vital Signs: Temperature 98 degrees, heart rate 104, blood pressure 171/96, oxygen saturation 97% on room air. General: No acute distress, lying comfortably in bed. Alert and oriented x3. Respiratory: Good respiratory effort without audible wheezing or rales. Abdomen: Soft nontender. Genitourinary: Penile lesion resection site is well healed. Chromic sutures are in present. There is a small amount of bruising to the glans of the penis as well as on the ventral surface. No evidence of active bleeding is seen. No evidence of crepitus or tenderness to palpation. Urethral catheter in place draining thin reddish urine. No evidence of any clots. Musculoskeletal: Evidence of upper and lower extremity atrophy and contractures. LABORATORY DATA: Sodium 137, potassium 3.7, chloride 102, bicarb 23, BUN 16, creatinine 1.3, glucose 66, calcium 8.5. ASSESSMENT AND PLAN: Mr. Regan is a 59-year-old who is postoperative day 1 from cystoscopy, bilateral retrograde pyelograms, right ureteral stent placement and excision of penile lesion. Overall, patient seems to be doing well. Had some hypotension postoperatively, which I think is related to medications received in the operating room. He remains afebrile overnight with no evidence of tachycardia. His blood pressures have improved. He has a small amount of bruising overlying his glans. No obvious crepitus or signs of infection. I think this is likely related to the trauma of the procedure and subcutaneous bruising seems to track slightly into the ventral surface. No obvious active bleeding is seen. Urethral catheter has been draining thin reddish urine. No evidence of any clots. I talked with him, I recommended keeping indwelling catheter in place. The patient should likely have urodynamics to better assess bladder function due to the abnormal appearance of his bladder. I am not sure if long-term he would be a candidate for continued condom catheter. However, if the patient has minimal pressure in the bladder, could consider this in the future. We will plan for outpatient setting follow-up. The patient is scheduled to have a PICC line today for home antibiotics which I think is appropriate due to Pseudomonas infection. I would continue with indwelling catheter at this time. We will continue monitor from urologic standpoint. Please call with questions or concerns. cc: MD Harry Hutchins MD MTDD
[2019-10-25] MEDS: ZANAFLEX PO SCH ×2 (09:38→14:51)
[2019-10-25] MEDS: VICON-C PO SCH (09:38)
[2019-10-25] MEDS: FLORINEF PO SCH (09:38)
[2019-10-25] MEDS: PEPCID PO SCH (09:38)
[2019-10-25 11:36] VITALS: BP 95/64
[2019-10-25] MEDS ORDERED: MAXIPIME 1 GM in NS 50 ML IV ONE (13:59)
--- NOTE | 2019-10-25 16:01 | PROGRESS NOTE ---
DATE: 10/25/2019 SUBJECTIVE: Patient currently is resting. PICC line was placed earlier this morning. Vital signs have been good through the day, running a little low at systolics of 70s currently. CV RRR. Lungs CTA. Indwelling Kathleen catheter has been placed per Dr. Diaz. He is asleep so I did not try to arouse him fully. Sodium 137, potassium 3.7, chloride 102, CO2 23, BUN 16, creatinine 1.3, calcium 8.5, phosphorus 2.3, albumin 3.5. ASSESSMENT: 1. Hypotension secondary to autonomic dysreflexia. 2. Quadriplegia, longstanding. 3. Pseudomonas aeruginosa UTI. 4. Left nephrolithiasis. 5. Neurogenic bladder with indwelling catheter placed yesterday per Dr. Diaz. 6. Atrophic left kidney. 7. Postoperative day #1 status post skin tag removal glans penis. 8. Renal insufficiency improved with hydration. 9. Anemia of chronic disease. 10. Chronic muscle spasms secondary to his quadriplegia. 11. Nonobstructive CAD. PLAN: We will discharge patient home on his home medications of Pepcid, Robaxin, Crestor, propantheline p.r.n., Florinef 0.05 mg p.o. at bedtime, aspirin 81 mg daily, potassium gluconate 99 mg daily, calcium 600 mg daily, and he will be on cefepime 1 g IV q. 12 hours per [facility] for the next 14 days. He will follow up in my office in [address] Diaz in 6 days. cc: Harry Marcus MD
--- NOTE | 2019-10-25 22:05 | OPERATIVE NOTE ---
PROCEDURE DATE: 10/25/2019 PREOPERATIVE DIAGNOSIS: 1. Penile lesion. 2. Right hydronephrosis. 3. Neurogenic bladder from spinal cord injury. POSTOPERATIVE DIAGNOSIS: 1. Penile lesion. 2. Right hydronephrosis. 3. Neurogenic bladder from spinal cord injury. PROCEDURE PERFORMED: 1. Cystoscopy with bilateral retrograde pyelograms. 2. Right ureteral stent placement. 3. Excision of penile lesion. SURGEON: Shakeel Diaz MD. MANNEQUIN WIG MAKER: None. COMPLICATIONS: None. BLOOD LOSS: 5 mL. DRAINS: 1. A 16-Burmese Kathleen catheter. 2. 6 x 26 cm left ureteral stent. SPECIMENS REMOVED: Penile lesion. ANESTHESIA: Monitored anesthesia. OPERATIVE FINDINGS: The patient had a normal phallus with what appeared to be a penile lesion arising from the ventral surface of the meatus, likely a penile skin tag as he has had this excised previously. Was able to have cystoscopy with normal urethra and no evidence of any significant trauma. Once inside of the proximal urethra, there was evidence of dilation of the prostatic urethra with no obvious obstruction seen. The entirety of the bladder was inspected with the 30 and 70 degree lenses which showed a large amount of trabeculations throughout the bladder, with multiple thickened zamudio and with multiple diverticula seen throughout. Both ureteral orifices were seen with what appeared to be a significant amount of dilation of the left ureteral orifice. The right orifice seemed to be narrow and no significant abnormality was seen. Once this was completed, open-ended catheter was then passed through the scope, and both ureteral orifices were cannulized and retrograde pyelograms performed which showed hydronephrosis bilaterally, with most prominent in the right kidney. A right ureteral stent was placed and the patient underwent uneventful placement of indwelling urethral catheter, and then had excision of penile lesion. INDICATIONS FOR PROCEDURE: Mr. Regan is a 51-year-old who has a history of spinal cord injury and uses a condom catheter. He had a sphincterotomy by Dr. Leger approximately 30 years ago, and has used a condom catheter ever since then. The patient had a CT scan performed this week which showed neurogenic bladder with multiple diverticula, and a thickening of the bladder with right hydronephrosis and atrophic left kidney. I talked with him. The patient has been having infections as well as hydronephrosis on his CT scan. I recommended cystoscopy with bilateral retrograde pyelograms, possible right ureteral stent placement, and excision of penile lesion. After a thorough discussion with the patient and his family, they elected to proceed. DESCRIPTION OF PROCEDURE: After informed consent was obtained, the patient was brought to the operating room and placed on the operating table in supine position. Patient received preoperative antibiotics and underwent monitored anesthesia. He was positioned to a dorsal lithotomy position, and was prepped and draped in the usual sterile fashion. A preoperative time- out was then performed with all parties in agreement, including anesthesia, surgical, and nursing staff. At which point I inserted a 21-Burmese cystourethroscope through the urethra. This showed a normal urethra with no evidence of any stricture disease or papillary lesions. Once into the proximal urethra, there was evidence of dilation of the prostatic urethra with minimal prostatic tissue present. Once inside the bladder, bladder neck was widely patent with no evidence of any papillary lesions. There was evidence of trabeculations and multiple diverticula throughout the bladder. These were interrogated with the 30 and 70 degree lenses with no obvious papillary lesions or tumor present. The patient's bladder was irrigated out multiple times and then an open- end catheter was passed through the scope, flushed of all bubbles, and the left ureteral orifice was visualized and appeared to be widely patent. This was injected with Omnipaque which showed a hydronephrotic ureter all the way into the kidney, with a slightly atrophic appearance of the left kidney with no obvious filling defects seen. Good drainage was seen from the collecting system. Attention was then placed to the right side and a similar procedure was performed. There was evidence of hydronephrosis with less drainage from the renal collecting system. Concern arose for obstruction due to patient's neurogenic bladder. Decision was made to place a stent at that time and this was placed with ease, with a good curl within the kidney and endoscopically visualized in the bladder. Good drainage was seen through and around the stent. Following this, the patient's bladder was left full and then a 16-Burmese Kathleen catheter was inserted through the urethra and into the bladder, inflated with 10 mL of sterile water, and placed to gravity drainage. Attention was then placed to performing penile excisional biopsy. There was a small area arising from the right ventral surface of the glans inferior to the meatus. Using Metzenbaum scissors, this was dissected off and completely excised. A small amount of bleeding was seen. This was cauterized and then the wound was closed with three 4-0 chromic sutures, with good approximation of skin edges and no active bleeding. A small dressing was applied. The patient was then awoken and was taken to Recovery in stable condition. Patient will be transferred back to the floor for observation. cc: MD Harry Hutchins MD MTDScotty
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
== END 2019-10-25 16:33 | disposition home health service (06) | DRG 659 ==
LOC: ED 11:49 → INTOOBSV 17:37 → EDIPHOLD 17:37 → OBSVTOIN 17:37 → 2N 10-22 23:08
PROVIDERS: ADMIT Family Medicine; ATTEND Family Medicine